=== PATIENT | female | born 1955 | race Caucasian/White ===

== ENCOUNTER → 2016-08-05 | Outpatient (CLI) | payer MEDICAID ==
[~2016-08-05] MED LIST: ALBU8.5H3 INH; ALBU8.5H5 INH; ASPI-515 PO; CHOL100011 PO; FLUT1DIS IH; MOME13HF2 INH; MULT-516 PO; OMEG1CAP34 PO; OMEP-110 PO; TIOT18CA INH
== END | disposition home or self-care (01) ==
LOC: CFH 09:02
PROVIDERS: ATTEND Nurse Practitioner
DX: J43.2 Centrilobular emphysema (principal)
CPT/HCPCS: 71250

== ENCOUNTER → 2018-05-15 | Outpatient (CLI) | payer SELFPAY ==
[~2018-05-15] MED LIST changes: -ALBU8.5H3 INH; +ALBU8.5H8 INH
== END | disposition home or self-care (01) ==
LOC: CFH 15:00 → EDSTATUS 15:30
PROVIDERS: ATTEND Nurse Practitioner
DX: J43.2 Centrilobular emphysema (principal); J84.10 Pulmonary fibrosis, unspecified; R91.1 Solitary pulmonary nodule; F17.200 Nicotine dependence, unspecified, uncomplicated; Z85.118 Personal history of other malignant neoplasm of bronchus and lung
CPT/HCPCS: 71250

== ENCOUNTER 2021-01-15 09:07 | Outpatient (CLI) | payer OTHER ==
[~2021-01-15 09:07] MED LIST changes: -ASPI-515 PO; +ASPI-963 PO
[2021-01-15] MEDS ORDERED: OMNIPAQUE 350 MG/ML, 100ML BOTTLE ONE (09:46)
[2021-01-15] MEDS ORDERED: LISI2.5T12 PO (11:47)
[2021-01-15] MEDS ORDERED: METF500T17 PO (11:47)
[2021-01-15] MEDS ORDERED: FLUT1BLS3 IH (11:47)
[2021-01-15] MEDS ORDERED: DILT180C72 PO (11:47)
[2021-01-15] MEDS ORDERED: MULT-752 PO (11:47)
[2021-01-15] MEDS ORDERED: ESOM20CA PO (11:49)
[2021-01-15] MEDS ORDERED: MAGN500C9 PO (11:49)
[2021-01-15] MEDS ORDERED: ASPI81TA45 PO (11:49)
[2021-01-15] MEDS ORDERED: CETI10TA76 PO (11:49)
== END 2021-01-15 23:59 | disposition home or self-care (01) ==
LOC: CFH 09:07
PROVIDERS: ATTEND Internal Medicine
DX: C34.2 Malignant neoplasm of middle lobe, bronchus or lung (principal); R91.8 Other nonspecific abnormal finding of lung field
CPT/HCPCS: 71260; Q9967

== ENCOUNTER 2021-01-15 10:45 | Outpatient (CLI) | payer OTHER ==
[2021-01-15] MEDS ORDERED: DILT180C72 PO (11:47)
[2021-01-15] MEDS ORDERED: LISI2.5T12 PO (11:47)
[2021-01-15] MEDS ORDERED: FLUT1BLS3 IH (11:47)
[2021-01-15] MEDS ORDERED: MULT-752 PO (11:47)
[2021-01-15] MEDS ORDERED: METF500T17 PO (11:47)
[2021-01-15] MEDS ORDERED: MAGN500C9 PO (11:49)
[2021-01-15] MEDS ORDERED: ASPI81TA45 PO (11:49)
[2021-01-15] MEDS ORDERED: ESOM20CA PO (11:49)
[2021-01-15] MEDS ORDERED: CETI10TA76 PO (11:49)
== END 2021-01-15 23:59 | disposition home or self-care (01) ==
LOC: STAR 10:45
PROVIDERS: ATTEND Internal Medicine
DX: Z01.818 Encounter for other preprocedural examination (principal); R91.8 Other nonspecific abnormal finding of lung field; R94.31 Abnormal electrocardiogram [ECG] [EKG]; Z20.822 Contact with and (suspected) exposure to COVID-19
CPT/HCPCS: 36415; 87635; 93005

== ENCOUNTER 2021-01-19 07:13 | Day surgery (SDC) | payer OTHER ==
[~2021-01-19] VITALS: Ht 167.6 cm; Wt 67.4 kg
[2021-01-19 08:21] VITALS: BP 110/63
== END 2021-01-19 13:40 | disposition home or self-care (01) ==
LOC: OUT 07:13
PROVIDERS: ATTEND Internal Medicine
DX: R91.8 Other nonspecific abnormal finding of lung field (principal); J98.4 Other disorders of lung; J44.9 Chronic obstructive pulmonary disease, unspecified; I10 Essential (primary) hypertension; E11.9 Type 2 diabetes mellitus without complications; K21.9 Gastro-esophageal reflux disease without esophagitis; Z79.84 Long term (current) use of oral hypoglycemic drugs; Z79.899 Other long term (current) drug therapy
CPT/HCPCS: 31624; 31627; 31628; 31632; 71045; 80053; 82962; 88112; 88172; 88173; 88177; 88305; J0330; J1100; J2250; J2405; J2704; J3010